=== PATIENT | female | born 1990 | race Caucasian/White ===

== ENCOUNTER 2017-08-27 18:25 | Emergency (ER) | payer OTHER ==
[2017-08-27 19:14] VITALS: BP 124/60; PULSE 71; RESP 16; TEMP 98.8; O2SAT 100
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
== END 2017-08-27 20:01 | disposition home or self-care (01) ==
LOC: NEPK 18:25
DX: S60.222A Contusion of left hand, initial encounter (principal); S30.1XXA Contusion of abdominal wall, initial encounter; V43.52XA Car driver injured in collision with other type car in traffic accident, initial encounter; W22.11XA Striking against or struck by driver side automobile airbag, initial encounter
CPT/HCPCS: 99282